=== PATIENT | female | born 1945 | race Caucasian/White ===

== ENCOUNTER → 2016-06-22 | Outpatient (CLI) | payer OTHER ==
--- NOTE | 2016-06-22 17:00 | CT ---
CT Right Lower Extremity With Attention to the Knee Indication: Pain. Preoperative evaluation for right total knee replacement. Technique: Spiral imaging was obtained through the right knee at 1.25 mm slice thickness along with s piral imaging through the right hip and right ankle at 2.5 mm slice thickness. Data were transmitted for subsequent SERA knee replacement. Dose reduction techniques utilized. Findings Right Hip: Mild osteoarthritic changes are present at the right hip. Right Knee: There is moderate degenerative change of the medial and lateral compartments and the taylor llofemoral joint. Lateral bony spurring and medial bony spurring are present. No evidence of fracture . Right Ankle: Mild degenerative changes of the ankle are present. Impressions 1. Moderate osteoarthritic changes of the medial and lateral compartments and patellofemoral joint, r ight knee. 2. Data were transmitted for SERA knee replacement surgery. e:ora
== END ==
LOC: FIMAGING 15:36
PROVIDERS: ATTEND Orthopaedic Surgery
DX: Z01.818 Encounter for other preprocedural examination (principal); M17.11 Unilateral primary osteoarthritis, right knee

== ENCOUNTER → 2016-09-20 | Outpatient (CLI) | payer OTHER | LOC: FIMAGING 15:57 | DX: Z12.31 Encounter for screening mammogram for malignant neoplasm of breast (principal) | CPT/HCPCS: G0202 ==

== ENCOUNTER → 2016-12-02 | Outpatient (CLI) | payer OTHER | LOC: FIMAGING 13:07 | PROVIDERS: ATTEND Neurological Surgery | DX: M54.2 Cervicalgia (principal); G89.29 Other chronic pain; M50.30 Other cervical disc degeneration, unspecified cervical region; M25.78 Osteophyte, vertebrae; M48.02 Spinal stenosis, cervical region ==

== ENCOUNTER → 2016-12-18 | Outpatient (CLI) | payer OTHER | LOC: FIMAGING 14:14 | PROVIDERS: ATTEND Orthopaedic Surgery | DX: Z01.818 Encounter for other preprocedural examination (principal); M17.11 Unilateral primary osteoarthritis, right knee ==

== ENCOUNTER → 2016-12-20 | Outpatient (CLI) | payer OTHER | LOC: FIMAGING 14:58 | PROVIDERS: ATTEND Family Medicine | DX: Z13.820 Encounter for screening for osteoporosis (principal); Z78.0 Asymptomatic menopausal state; M85.80 Other specified disorders of bone density and structure, unspecified site; Z79.890 Hormone replacement therapy ==

== ENCOUNTER 2016-12-26 11:10 | Inpatient (IN) | payer OTHER ==
[~2016-12-26 11:10] MED LIST: ROPIVACAINE 0.2% 80 MG, EPINEPHrine 0.2 MG, KETOROLAC TROMETHAMINE 30 MG in BAG 0 ML IU ONE; TRANEXAMIC ACID 3,000 MG in NS 50 ML IRR ONE; TRANEXAMIC ACID 3,000 MG/50 ML BAG IRR ONE; VANCOMYCIN 1 GM VIAL ONE
[2016-12-26] MEDS ORDERED: LR 1,000 ML IV ONE (11:32)
[2016-12-26] MEDS ORDERED: DEXAMETHASONE 4 MG/ML VIAL IVP ONE (11:32)
[2016-12-26] MEDS ORDERED: ceFAZolin 2 GM/DEXTROSE 100 ML IV ONE (11:32)
[2016-12-26] MEDS ORDERED: FAMOTIDINE 20 MG TAB PO ONE (11:32)
[2016-12-26] MEDS ORDERED: LIDOCAINE 1% 2 ML INJ ID PRN (11:32)
[2016-12-26] MEDS ORDERED: ACETAMINOPHEN 325 MG TAB PO ONE (11:32)
--- NOTE | 2016-12-26 12:17 | PDHPUP ---
History & Physical Update H&P update statement: This history and physical update is based on an assessment of the patient which was completed after admission or registration (within 24 hours), but prior to the surgery/procedure. H&P update: H&P reviewed & patient examined, no change in patient's condition since H&P completed
[2016-12-26] MEDS ORDERED: MIDAZOLAM 2 MG/2 ML VIAL IVP ONE (12:52)
--- NOTE | 2016-12-26 12:52 | PDANEPAE ---
ANE History of Present Illness RIGHT KNEE OA ANE Past Medical History - Cardiovascular History Hx Hypertension: No Hx Arrhythmias: No Hx Chest Pain: No Hx Coronary Artery / Peripheral Vascular Disease: No Hx CHF / Valvular Disease: No Hx Palpitations: No - Pulmonary History Hx COPD: No Hx Asthma/Reactive Airway Disease: No Hx Recent Upper Respiratory Infection: No Hx Oxygen in Use at Home: No Hx Sleep Apnea: No Sleep Apnea Screening Result - Last Documented: Negative - Neurologic History Hx Cerebrovascular Accident: No Hx Seizures: No Hx Dementia: No - Endocrine History Hx Diabetes: No - Liver History Hx Hepatic Disorders: No - Neurological & Psychiatric Hx Hx Neurological and Psychiatric Disorders: Yes Neurological / Psychiatric History Comment: neck pain,stiffness - Cancer History Hx Cancer: No - Congenital Disorder History Hx Congenital Disorders: No - GI History Hx Gastrointestinal Disorders: No - Other Health History Other Health History: OA bilat knees-R knee more swelling using stairs - Chronic Pain History Chronic Pain: Yes (knees) - Surgical History Prior Surgeries: cosmetic surgery 2015. parathyroidectomy 02-10-13. myomectomy 1993. C section 1984 ANE Review of Systems - Exercise capacity METS (RN): 4 METS ANE Patient History - Allergies Allergies/Adverse Reactions: silver [From [employer] Mesh] Allergy (Verified 12/05/16 11:34) Rash - Home Medications Home Medications: Cmp E2/E3/T-Prog [0.5/4/1-100m] Crm 60ml 1 ml TP BID 05/31/16 [Last Taken Unknown] Herbals/Supplements -Info Only 1 ea PO DAILY 05/31/16 [Last Taken Unknown] Multivitamins [Multivitamin (*)] 1 each PO DAILY 05/31/16 [Last Taken Unknown] Thyroid [[place] Thyroid 60 MG (*)] 120 mg PO HS 05/31/16 [Last Taken Unknown] Cholecalciferol Vit D3 [Vitamin D3 2000 units tab (OTC)] 2,000 - 4,000 units PO DAILY 11/28/16 [Last Taken Unknown] Naproxen Sod/Diphenhydramine [Aleve Pm Caplet] 1 each PO HS 11/28/16 [Last Taken Unknown] - NPO status NPO Since - Liquids (Date): 12/26/16 NPO Since - Liquids (Time): 10:15 NPO Since - Solids (Date): 12/25/16 NPO Since - Solids (Time): 22:15 - Smoking Hx Smoking Status: Unknown if ever smoked ANE Labs/Vital Signs - Vital Signs Blood Pressure: 162/89 Heart Rate: 86 Respiratory Rate: 16 O2 Sat (%): 94 Height: 167.64 cm Weight: 71.668 kg ANE Physical Exam - Airway Neck exam: FROM Mallampati Score: Class 1 Mouth exam: normal dental/mouth exam - Pulmonary Pulmonary: no respiratory distress - Cardiovascular Cardiovascular: regular rate and rhythym - ASA Status ASA Status: II ANE Anesthesia Plan Anesthesia Plan: spinal Regional Anesthesia: adductor canal FNB
[2016-12-26] MEDS ORDERED: MIDAZOLAM 2 MG/2 ML VIAL ONE (12:53)
[2016-12-26] MEDS ORDERED: PROPOFOL/EMULSION 500 MG/50 ML BOTTLE IV ONE (13:02)
[2016-12-26] MEDS ORDERED: OXYCODONE/APAP 5/325 TAB PO PRN (14:15)
[2016-12-26] MEDS ORDERED: fentaNYL 100 MCG/2 ML INJ IVP PRN (14:15)
[2016-12-26] MEDS ORDERED: LR 500 ML IV PRN (14:15)
[2016-12-26] MEDS ORDERED: ONDANSETRON 4 MG/2 ML VIAL IVP PRN ×2 (14:15→14:30)
[2016-12-26] MEDS ORDERED: ACETAMINOPHEN 500 MG TAB PO PRN (14:15)
[2016-12-26] MEDS ORDERED: NALOXONE HCL 0.4 MG/ML INJ IVP PRN (14:15)
[2016-12-26] MEDS ORDERED: HYDROmorphONE/DILAUDID 1 MG/ML SYR IVP PRN (14:15)
[2016-12-26] MEDS ORDERED: PHARMACY PAIN CONSULT 1 EA MISC PRN (14:30)
[2016-12-26] MEDS ORDERED: LACTULOSE 20 GM/30 ML UDCUP PO PRN (14:30)
[2016-12-26] MEDS ORDERED: DIPHENOXYLATE/ATROPINE LOMOTIL 1 TAB PO PRN (14:30)
[2016-12-26] MEDS ORDERED: PROMETHAZINE HCL 25 MG SUPPR PR PRN (14:30)
[2016-12-26] MEDS ORDERED: TEMAZEPAM 15 MG CAP PO PRN (14:30)
[2016-12-26] MEDS ORDERED: BISACODYL 10 MG SUPP PR PRN (14:30)
[2016-12-26] MEDS ORDERED: LR 1,000 ML IV SCH (14:30)
[2016-12-26] MEDS ORDERED: METOCLOPRAMIDE 10 MG/2 ML VIAL IVP PRN (14:30)
[2016-12-26] MEDS ORDERED: PROMETHAZINE HCL 25 MG/ML INJ IVP PRN (14:30)
[2016-12-26] MEDS ORDERED: POLYETHYLENE GLYCOL 3350 17 GM PKT PO PRN (14:30)
[2016-12-26] MEDS ORDERED: ONDANSETRON DISINTEGRATING 4 MG TAB PO PRN (14:30)
[2016-12-26] MEDS ORDERED: diphenhydrAMINE 25 MG CAP PO PRN (14:30)
[2016-12-26] MEDS ORDERED: MAGNESIUM HYDROXIDE 30 ML UDCUP PO PRN (14:30)
[2016-12-26] MEDS ORDERED: CYCLOBENZAPRINE 10 MG TAB PO PRN (14:30)
--- NOTE | 2016-12-26 14:30 | POSTOPPROG ---
Post Op Note Date of Operation: 12/26/16 Surgeon: Tyler Blanco Sack Department Supervisor: kailey blanco Anesthesiologist: dr. maya Anesthesia: Spinal, Other (Specify) (adductor canal block) Pre-op Diagnosis: right knee OA Post-op Diagnosis: same Indication: right knee pain due to OA that failed conservative measures Procedure: R TKA robot assisted Findings: severe knee OA Inf/Abcess present in the surg proc area at time of surgery?: No EBL: 50-100
--- NOTE | 2016-12-26 14:44 | POSTANESTH ---
Post Anesthetic Evaluation Cardiovascular Status: Normal, Stable Respiratory Status: Normal, Stable Level of Consciousness/Mental Status: Can Participate in Eval Pain Control: Adequate, Prn Tx Ordered Nausea/Vomiting Control: Adequate, Prn Tx Ordered Complications Possibly Related to Anesthesia: None Noted
[2016-12-26] MEDS ORDERED: HYDROmorphONE/DILAUDID 1 MG/ML SYR ONE (15:47)
[2016-12-26] MEDS ORDERED: fentaNYL 100 MCG/2 ML INJ ONE (15:47)
[2016-12-26] MEDS: ACETAMINOPHEN 325 MG TAB PO SCH ×2 (17:35→23:49)
[2016-12-26] MEDS: oxyCODONE IR 5 MG TAB PO PRN ×3 (17:36→23:48)
[2016-12-26] MEDS ORDERED: THYROID 60 MG TAB PO SCH (21:00)
[2016-12-26] MEDS: ceFAZolin 2 GM/DEXTROSE 100 ML IV SCH (21:46)
[2016-12-26] MEDS: ASPIRIN 325 MG TAB PO SCH (21:46)
[2016-12-26] MEDS: FAMOTIDINE 20 MG TAB PO SCH (21:48)
[2016-12-26] MEDS: SENNOSIDES/DOCUSATE SODIUM TAB PO SCH (21:48)
[2016-12-27] MEDS: oxyCODONE IR 5 MG TAB PO PRN (02:47)
[2016-12-27] MEDS: ceFAZolin 2 GM/DEXTROSE 100 ML IV SCH (04:45)
[2016-12-27] MEDS: ACETAMINOPHEN 325 MG TAB PO SCH (04:45)
[2016-12-27 05:07] LABS: HEMATOCRIT 36.7 % (38.0-47.0); HEMOGLOBIN 12.1 g/dL (12.6-16.3)
[2016-12-27 07:39] VITALS: BP 126/70; PULSE 71; RESP 14; TEMP 98.1; O2SAT 93
[2016-12-27] MEDS: SENNOSIDES/DOCUSATE SODIUM TAB PO SCH (09:00)
[2016-12-27] MEDS: ASPIRIN 325 MG TAB PO SCH (09:00)
[2016-12-27] MEDS: FAMOTIDINE 20 MG TAB PO SCH (09:00)
--- NOTE | 2016-12-27 10:45 | SOAPPROG ---
SOAP Progress Note Assessment/Plan: Assessment: Patient is doing well POD 1 s/p R TKA Pain management: pain is well controlled on oral pain meds. VTE ppx: recommend aspirin daily for 3 weeks, cont BROCK and SCDs Anemia: level is expected initially postop. Asymptomatic. Continue to monitor D/c planning: d/c to home today pending release from PT Plan: 12/27/16 10:44 Subjective: Onur is doing well today, denies SOB, chest pain and N/V. Objective: Vital Signs Temp Pulse Resp BP Pulse Ox 36.7 C 71 14 126/70 H 93 12/27/16 07:38 12/27/16 07:38 12/27/16 07:38 12/27/16 07:38 12/27/16 07:38 Laboratory Results 12/27/16 04:47 12/26/16 12/27/16 12/28/16 05:59 05:59 05:59 Intake Total 3600 Output Total 4450 450 Balance -850 -450 RLE: incision dressing is clean and dry, NVI, +pf/df ICD10 Worksheet Patient Problems: Problems Problem Status Onset Primary localized osteoarthritis of right knee Acute
--- NOTE | 2016-12-28 12:51 | GOP ---
[f rep st] OPERATIVE REPORT DATE OF OPERATION: 12/26/2016 SURGEON: Maureen Styles MD ASSISTANT FITNESS MANAGER: SHU Guzman ANESTHESIA: Spinal. PREOPERATIVE DIAGNOSIS: Right knee osteoarthritis. POSTOPERATIVE DIAGNOSIS: Right knee osteoarthritis. PROCEDURE PERFORMED: Right total knee arthroplasty with computer navigation and robotic assist. FINDINGS: ESTIMATED BLOOD LOSS: 30 cc INDICATIONS: This is a 71-year-old female with severe and progressive pain and deformity of the right knee unresponsive to conservative care. Risks and benefits of the surgical intervention were explained in detail. DESCRIPTION OF PROCEDURE: The patient was brought to the operative room and placed on the table in the supine position. Spinal anesthesia was induced without difficulty. A pneumatic tourniquet was applied about the right proximal thigh, and the leg was prepped and draped in a sterile fashion. The leg lacey was applied. After exsanguination by elevation the tourniquet was inflated to mm of mercury. Incision was made anterior medial from the tibial tuberosity to a point cm proximal to the superior pole of the patella. Medial parapatellar arthrotomy was carried out from the superior pole of the patella and posteriorly in line with the fibers of the Type 2 VMO. The medial collateral ligament was elevated and the infrapatellar fat pad was resected. The patella was everted and the articular surface was excised. A 35 mm patellar button was placed. The distal femoral guide hole was drilled and the 6 degree alignment simran was placed. A mm distal femoral cut was made without difficulty. Attention was turned to the tibia and a standard mm cut based on the ___ ____ tibial condyle was performed. The tibial articular surface was excised without difficulty. Attention was turned back to the femur and a size 4 femoral cutting block was positioned. Anterior, posterior, and chamfer cuts were made, followed by the intercondylar box cut. The knee was extended and the remnants of the medial and lateral meniscus were excised. The posterior capsule was injected with ropivacaine, epinephrine, and Toradol. A size 4 tibial tray was positioned. Trial reduction was then carried out. There was excellent range of motion, alignment, and stability using the 4 x 9 mm polyethylene. All trials were then removed. The joint was thoroughly irrigated and carefully dried. Two packages of cement and 2 grams of vancomycin were mixed in the vacuum mixer and placed on the fixation surfaces of all surfaces of the components. The components were implanted and all excess cement was thoroughly removed. The permanent 4 x 9 mm polyethylene was placed without difficulty. The tourniquet was deflated and all bleeders were coagulated. The wound was thoroughly irrigated and closed using interrupted sutures of 2-0 Vicryl for the joint capsule. The subcu was closed with 3-0 Vicryl and the skin with 4-0 Monocryl. Dermabond and Steri-Strips were applied followed by a compressive dressing. The patient was then moved from the operating room to the recovery room in good condition, having tolerated the procedure well. /[id number]/MODL MTDD
--- NOTE | 2016-12-28 13:01 | GDS ---
[f rep st] DISCHARGE SUMMARY ADMISSION DIAGNOSIS: Right knee osteoarthritis. DISCHARGE DIAGNOSIS: Right knee osteoarthritis. PROCEDURE: Right total knee arthroplasty. VTE PROPHYLAXIS: Aspirin recommend daily. BRIEF DESCRIPTION OF HOSPITAL STAY: Patient was admitted for an elective joint arthroplasty. The p atient tolerated the procedure well and has passed physical therapy. The patient was given appropri ate antibiotic prophylaxis and venous thromboembolism prophylaxis. The patient's pain was well cont rolled on oral pain medication, patient was holding down food, and had urinated. Decision was made to discharge the patient. The patient was given post-operative prescriptions pre-operatively. PLANS: Follow up as scheduled January 17 at 1:30 p.m. /[id number]/MODL
== END 2016-12-27 11:08 | disposition home or self-care (01) | DRG 470 ==
LOC: F3N 11:10
PROVIDERS: ADMIT Orthopaedic Surgery; ATTEND Orthopaedic Surgery
PROC: 8E0YXBG Computer Assisted Procedure of Lower Extremity, With Computerized Tomography (ICD-10-PCS; principal; 2016-12-26 13:15)
PROC: 8E0Y0CZ Robotic Assisted Procedure of Lower Extremity, Open Approach (ICD-10-PCS; principal; 2016-12-26 13:15)
PROC: 0SRC0J9 Replacement of Right Knee Joint with Synthetic Substitute, Cemented, Open Approach (ICD-10-PCS; principal; 2016-12-26 13:15)
DX: M17.11 Unilateral primary osteoarthritis, right knee (principal)
CPT/HCPCS: 97161-GP; 97165-GO; C1713; J0171; J0690; J1100; J1170; J1885; J2250; J2704; J2795; J3010; J3370

== ENCOUNTER 2017-04-26 09:15 | Inpatient (IN) | payer OTHER ==
[2017-05-31] MEDS ORDERED: ROPIVACAINE 0.2% 80 MG, EPINEPHrine 0.2 MG, KETOROLAC TROMETHAMINE 30 MG in SYRINGE 0 ML IU ONE (06:00)
[2017-05-31] MEDS ORDERED: TRANEXAMIC ACID 3,000 MG in NS 50 ML IRR ONE (06:00)
[2017-05-31] MEDS ORDERED: LR 1,000 ML IV ONE (06:32)
[2017-05-31] MEDS ORDERED: ceFAZolin 2 GM/SWFI 2 GM/20 ML SYR IVP ONE (06:32)
[2017-05-31] MEDS ORDERED: FAMOTIDINE 20 MG TAB PO ONE (06:32)
[2017-05-31] MEDS ORDERED: DEXAMETHASONE 4 MG/ML VIAL IVP ONE (06:32)
[2017-05-31] MEDS ORDERED: ACETAMINOPHEN 325 MG TAB PO ONE (06:32)
[2017-05-31] MEDS ORDERED: LIDOCAINE 1% 2 ML INJ ID PRN (06:32)
[2017-05-31] MEDS ORDERED: TRANEXAMIC ACID 3,000 MG/50 ML BAG IRR ONE (06:39)
[2017-05-31] MEDS ORDERED: VANCOMYCIN 1 GM VIAL ONE (06:39)
[2017-05-31 06:45] VITALS: RESP 16
[2017-05-31] MEDS ORDERED: LIDOCAINE 1% 2 ML INJ ONE (06:48)
[2017-05-31] MEDS ORDERED: MIDAZOLAM 2 MG/2 ML VIAL ONE (07:02)
[2017-05-31] MEDS ORDERED: MIDAZOLAM 2 MG/2 ML VIAL IVP ONE (07:05)
--- NOTE | 2017-05-31 07:07 | PDANEPAE ---
ANE History of Present Illness left knee oa ANE Past Medical History - Cardiovascular History Hx Hypertension: No Hx Arrhythmias: No Hx Chest Pain: No Hx Coronary Artery / Peripheral Vascular Disease: No Hx CHF / Valvular Disease: No Hx Palpitations: No - Pulmonary History Hx COPD: No Hx Asthma/Reactive Airway Disease: No Hx Recent Upper Respiratory Infection: No Hx Sleep Apnea: No Sleep Apnea Screening Result - Last Documented: Negative - Neurologic History Hx Cerebrovascular Accident: No Hx Seizures: No Hx Dementia: No - Endocrine History Hx Diabetes: No - Liver History Hx Hepatic Disorders: No - Neurological & Psychiatric Hx Hx Neurological and Psychiatric Disorders: Yes Neurological / Psychiatric History Comment: neck pain,stiffness - Cancer History Hx Cancer: No - Congenital Disorder History Hx Congenital Disorders: No - GI History Hx Gastrointestinal Disorders: No - Other Health History Other Health History: wears reading glasses - Chronic Pain History Chronic Pain: Yes (left knee) - Surgical History Prior Surgeries: 12/26/16 Right TKA with [place]. cosmetic surgery 2016. parathyroidectomy 02-10-13. myomectomy 1993. C section 1984 ANE Review of Systems Review of Systems: - Exercise capacity METS (RN): 4 METS ANE Patient History - Allergies Allergies/Adverse Reactions: silver [From [employer] Mesh] Allergy (Verified 03/25/17 12:48) Rash - Home Medications Home Medications: Herbals/Supplements -Info Only 1 ea PO DAILY 05/31/16 [Last Taken 05/17/17] Multivitamins [Multivitamin (*)] 1 each PO DAILY 05/31/16 [Last Taken 05/17/17] Thyroid [[place] Thyroid 60 MG (*)] 120 mg PO HS 05/31/16 [Last Taken 05/29/17] Cholecalciferol Vit D3 [Vitamin D3 2000 units tab (OTC)] 2,000 - 4,000 units PO DAILY 11/28/16 [Last Taken 05/17/17] Hrt Cream 2 ml TP DAILY 03/19/17 [Last Taken 05/24/17] Ibuprofen [Motrin (*)] 200 mg PO DAILY PRN 03/19/17 [Last Taken 05/17/17] - NPO status NPO Since - Liquids (Date): 05/30/17 NPO Since - Liquids (Time): 23:59 NPO Since - Solids (Date): 05/30/17 NPO Since - Solids (Time): 23:59 - Smoking Hx Smoking Status: Never smoked - Family Anes Hx Family Hx Anesthesia Complications: none ANE Labs/Vital Signs - Vital Signs Vital Signs: reviewed preoperatively; see RN documention for details Blood Pressure: 146/87 Heart Rate: 81 Respiratory Rate: 16 O2 Sat (%): 92 Height: 167.64 cm Weight: 71.668 kg ANE Physical Exam - Airway Neck exam: FROM Mallampati Score: Class 2 Mouth exam: dentures - Pulmonary Pulmonary: no respiratory distress - Cardiovascular Cardiovascular: regular rate and rhythym - ASA Status ASA Status: II ANE Anesthesia Plan Anesthesia Plan: GA w LMA, spinal Regional Anesthesia: adductor canal FNB
[2017-05-31] MEDS ORDERED: ONDANSETRON 4 MG/2 ML VIAL ONE (07:10)
[2017-05-31] MEDS ORDERED: DEXAMETHASONE 4 MG/ML VIAL ONE (07:10)
[2017-05-31] MEDS ORDERED: fentaNYL 100 MCG/2 ML INJ ONE (07:10)
[2017-05-31] MEDS ORDERED: PROPOFOL/EMULSION 500 MG/50 ML BOTTLE IV ONE (07:11)
[2017-05-31] MEDS ORDERED: BISACODYL 10 MG SUPP PR PRN (07:29)
[2017-05-31] MEDS ORDERED: TEMAZEPAM 15 MG CAP PO PRN (07:29)
[2017-05-31] MEDS ORDERED: ONDANSETRON 4 MG/2 ML VIAL IVP PRN ×2 (07:29→07:43)
[2017-05-31] MEDS ORDERED: METOCLOPRAMIDE 10 MG/2 ML VIAL IVP PRN (07:29)
[2017-05-31] MEDS ORDERED: PROMETHAZINE HCL 25 MG/ML INJ IVP PRN ×2 (07:29→07:43)
[2017-05-31] MEDS ORDERED: DIPHENOXYLATE/ATROPINE LOMOTIL 1 TAB PO PRN (07:29)
[2017-05-31] MEDS ORDERED: POLYETHYLENE GLYCOL 3350 17 GM PKT PO PRN (07:29)
[2017-05-31] MEDS ORDERED: ONDANSETRON DISINTEGRATING 4 MG TAB PO PRN (07:29)
[2017-05-31] MEDS ORDERED: CYCLOBENZAPRINE 10 MG TAB PO PRN (07:29)
[2017-05-31] MEDS ORDERED: diphenhydrAMINE 25 MG CAP PO PRN (07:29)
[2017-05-31] MEDS ORDERED: LACTULOSE 20 GM/30 ML UDCUP PO PRN (07:29)
[2017-05-31] MEDS ORDERED: MAGNESIUM HYDROXIDE 30 ML UDCUP PO PRN (07:29)
[2017-05-31] MEDS ORDERED: PROMETHAZINE HCL 25 MG SUPPR PR PRN (07:29)
[2017-05-31] MEDS ORDERED: LR 1,000 ML IV SCH (07:30)
[2017-05-31] MEDS ORDERED: fentaNYL 100 MCG/2 ML INJ IVP PRN (07:43)
[2017-05-31] MEDS ORDERED: MEPERIDINE 25 MG/ML SYR IVP PRN (07:43)
[2017-05-31] MEDS ORDERED: HYDROmorphONE/DILAUDID 1 MG/ML INJ IVP PRN (07:43)
[2017-05-31] MEDS ORDERED: NALOXONE HCL 0.4 MG/ML INJ IVP PRN (07:43)
[2017-05-31] MEDS ORDERED: ROPIVACAINE HCL 150 MG/30 ML INJ ONE (08:23)
--- NOTE | 2017-05-31 08:41 | POSTOPPROG ---
Post Op Note Date of Operation: 05/31/17 Surgeon: Tyler Blanco Production Operations Inspector: kailey blanco Anesthesiologist: dr. langford Anesthesia: Spinal, Other (Specify) (adductor canal block) Pre-op Diagnosis: left knee OA Post-op Diagnosis: same Indication: left knee pain due to OA that failed conservative measures Procedure: L TKA robot assisted Findings: severe knee OA Inf/Abcess present in the surg proc area at time of surgery?: No EBL: 50-100
[2017-05-31] MEDS: SENNOSIDES/DOCUSATE SODIUM TAB PO SCH ×2 (10:15→21:35)
[2017-05-31] MEDS: oxyCODONE IR 5 MG TAB PO PRN ×3 (11:24→21:35)
[2017-05-31] MEDS: ACETAMINOPHEN 325 MG TAB PO SCH ×3 (11:25→23:40)
[2017-05-31] MEDS: ceFAZolin 2 GM/DEXTROSE 100 ML IV SCH ×2 (14:05→21:34)
[2017-05-31] MEDS ORDERED: THYROID 60 MG TAB PO SCH (21:00)
[2017-05-31] MEDS: ASPIRIN EC 81 MG TAB PO SCH (21:34)
[2017-05-31] MEDS: FAMOTIDINE 20 MG TAB PO SCH (21:34)
[2017-06-01] MEDS: oxyCODONE IR 5 MG TAB PO PRN ×2 (05:54→11:33)
[2017-06-01] MEDS: ACETAMINOPHEN 325 MG TAB PO SCH ×2 (05:55→11:44)
[2017-06-01 06:12] LABS: HEMATOCRIT 36.3 % (38.0-47.0)
[2017-06-01 08:07] VITALS: BP 134/75; PULSE 78; TEMP 97.7; O2SAT 90
[2017-06-01] MEDS: SENNOSIDES/DOCUSATE SODIUM TAB PO SCH (10:03)
[2017-06-01] MEDS: ASPIRIN EC 81 MG TAB PO SCH (10:04)
[2017-06-01] MEDS: FAMOTIDINE 20 MG TAB PO SCH (10:04)
--- NOTE | 2017-06-01 10:24 | ASDISCHSUM ---
Discharge Information Plan Status:Home with No Needs Medically Cleared to Leave:05/31/2017 Discharge Date:05/31/2017 CM D/C Disposition:Home, Routine, Self-Care ADT D/C Disposition:Home, Routine, Self-Care Projected Discharge Date:05/31/2017 Transportation at D/C:Family Discharge Delay Reason: Follow-Up Date:05/31/2017 Discharge Slot: Final Diagnosis: Placement Information Patient Contact Information Contact Name:WILY Relationship:Other Address:[address], [place] [address] [place] City:[facility] Phone: [facility]/Zip Code:[place] [address] Email: Financial Information Financial Class:[facility] [employer] Primary Plan Desc:[facility] Primary Plan Number:[id number] Secondary Plan Desc:MEDICARE INPATIENT Secondary Plan Number:[id number] Assessment Information Case Management Discharge Plan Note Case Management Discharge Discharge Order Complete? Answers: Yes Patient to Obtain Answers: via Family Medications Transportation Arranged Answers: Family/Friends Discharge Comments Notes: Pt s/p L TKA. PT cleared. Pt discharging home with no CM needs and will follow up with outpatient therapy. Date Signed: 06/01/2017 10:23 AM Electronically Signed By:IVY Gray Intervention Information
--- NOTE | 2017-06-01 10:51 | SOAPPROG ---
SOAP Progress Note Assessment/Plan: Assessment: Pt is doing well POD 1 s/p L TKA pain is well controlled on oxycodone anemia: level expectedi nitially postop VTE ppx: recommend ASA 81 mg BID for 4 weeks D/c planning: d/c to home today Plan: 06/01/17 10:51 Objective: Vital Signs Temp Pulse Resp BP Pulse Ox 36.5 C 78 16 134/75 H 90 L 06/01/17 08:00 06/01/17 08:00 06/01/17 08:00 06/01/17 08:00 06/01/17 08:00 Laboratory Results 06/01/17 05:42 05/31/17 06/01/17 06/02/17 05:59 05:59 05:59 Intake Total 3250 Output Total 3230 Balance 20 ICD10 Worksheet Patient Problems: Problems Problem Status Onset Primary localized osteoarthritis of left knee Acute Primary localized osteoarthritis of right knee Acute
--- NOTE | 2017-06-01 23:51 | GOP ---
[f rep st] OPERATIVE REPORT DATE OF OPERATION: 05/31/2017 SURGEON: Maureen Styles MD HUMAN RESOURCES OFFICE MANAGER: SHU Guzman ANESTHESIA: Spinal. PREOPERATIVE DIAGNOSIS: Left knee osteoarthritis. POSTOPERATIVE DIAGNOSIS: Left knee osteoarthritis. PROCEDURE PERFORMED: Left total knee arthroplasty. FINDINGS/PATHOLOGY: Severe patellofemoral osteoarthritis. ESTIMATED BLOOD LOSS: 30 cc. INDICATIONS: This is a 71-year-old female with severe and progressive pain and deformity of the left knee unresponsive to conservative care. Risks and benefits of the surgical intervention were explained in detail. DESCRIPTION OF PROCEDURE: The patient was brought to the operative room and placed on the table in the supine position. Spinal anesthesia was induced without difficulty. A pneumatic tourniquet was applied about the left proximal thigh, and the leg was prepped and draped in a sterile fashion. The leg lacey was applied. After exsanguination by elevation the tourniquet was inflated to 275 mm of mercury. Incision was made anterior medial from the tibial tuberosity to a point 2 cm proximal to the superior pole of the patella. Medial parapatellar arthrotomy was carried out from the superior pole of the patella and posteriorly in line with the fibers of the Type II VMO. The medial collateral ligament was elevated and the infrapatellar fat pad was resected. The patella was everted and the articular surface was excised. A 35 mm patellar button was placed. Attention was turned first to the distal aspect of the left femur. At 3 cm proximal to the medial rise of the femur, 2 percutaneous half pins were placed for fixation of the femoral array. In a similar fashion, 2 pins were placed anteromedial on the tibia for fixation of the tibial array. External land marking and registration of the hip center was performed without difficulty. Internal femoral and tibial registration was carried out without difficulty and the femoral and tibial checkpoints were placed and verified for accuracy. Attention was turned to the femur. The foot print for the size 4 femoral component was cut with the saw using the [employer]mio robotic system and verified for accuracy against the CT based plan. In a similar fashion, saw was used to cut the footprint for the size 4 tibial component using the JEFFY system and verified for accuracy against the CT based plan. The tibial articular surface was excised without difficulty, followed by the intercondylar box cut. The knee was extended and the remnants of the medial and lateral meniscus were excised. The posterior capsule was injected with ropivacaine, epinephrine and Toradol. A size 4 MIS mini-keel tibial tray was positioned. Trial reduction was then carried out. There was excellent range of motion, alignment, and stability using the 9 mm polyethylene. All trials were then removed. The joint was thoroughly irrigated and carefully dried. Two packages of cement and 2 grams of vancomycin were mixed in the vacuum mixer and placed on the fixation surfaces of all surfaces of the components. The components were implanted and all excess cement was thoroughly removed. The permanent 9 mm polyethylene was placed without difficulty. The tourniquet was deflated and all bleeders were coagulated. The wound was thoroughly irrigated and closed using interrupted sutures of 2-0 Vicryl for the joint capsule. The subcu was closed with 3-0 Vicryl and the skin with 4-0 Monocryl. Dermabond and Steri-Strips were applied followed by a compressive dressing. The patient was then moved from the operating room to the recovery room in good condition, having tolerated the procedure well. /[id number]/MODL MTDD
== END 2017-06-01 12:36 | disposition home or self-care (01) | DRG 470 ==
LOC: F3N 05-31 05:57
PROVIDERS: ADMIT Orthopaedic Surgery; ATTEND Orthopaedic Surgery
DX: M17.12 Unilateral primary osteoarthritis, left knee (principal)
CPT/HCPCS: 97110-GP; 97116-GP; 97161-GP; 97165-GO; 97530-GP; C1713; G8978-GP-CJ; G8979-GP-CI; G8980-GP-CI; G8987-GO-CI; G8988-GO-CH; G8989-GO-CH; J0171; J0690; J1100; J1885; J2250; J2405; J2704; J2795; J3010; J3370

== ENCOUNTER → 2017-05-27 | Outpatient (CLI) | payer OTHER | LOC: FIMAGING 13:42 | PROVIDERS: ATTEND Orthopaedic Surgery | DX: Z01.818 Encounter for other preprocedural examination (principal); M17.12 Unilateral primary osteoarthritis, left knee ==

== ENCOUNTER 2018-11-25 19:08 | Emergency (ER) | payer OTHER | END 2018-11-25 23:07 | disposition home or self-care (01) | LOC: CED 19:08 ==